=== PATIENT | male | born 1995 | race African-American/Black ===

== ENCOUNTER 2017-05-08 10:36 | Emergency (ER) | payer MEDICAID ==
[~2017-05-08] VITALS: Ht 170.2 cm; Wt 72.0 kg
[2017-05-08 10:38] VITALS: BP 127/74
== END 2017-05-08 14:27 | disposition home or self-care (01) ==
LOC: ER 10:48
DX: M23.91 Unspecified internal derangement of right knee (principal)
CPT/HCPCS: 73562; 99284

== ENCOUNTER 2019-08-07 15:27 | Emergency (ER) | payer MEDICAID ==
[~2019-08-07] VITALS: Ht 170.2 cm; Wt 71.0 kg
[2019-08-07 15:28] VITALS: BP 125/73
== END 2019-08-07 15:52 | disposition home or self-care (01) ==
LOC: ER 15:34
DX: H10.9 Unspecified conjunctivitis (principal)
CPT/HCPCS: 99283

== ENCOUNTER 2020-01-04 16:33 | Emergency (ER) | payer MEDICAID ==
[~2020-01-04] VITALS: Ht 170.2 cm; Wt 70.0 kg
[2020-01-04 16:35] VITALS: BP 111/69
[2020-01-04] MEDS ORDERED: CEFTRIAXONE SODIUM 250 MG/VIAL IM ONE (17:15)
[2020-01-04] MEDS ORDERED: LIDOCAINE HCL 1% 20ML VIAL (Pyxis) INJ INFIL ONE (17:15)
[2020-01-04] MEDS ORDERED: AZITHROMYCIN 500 MG TABLET PO ONE (17:15)
== END 2020-01-04 18:00 | disposition home or self-care (01) ==
LOC: ER 16:40
DX: Z20.2 Contact with and (suspected) exposure to infections with a predominantly sexual mode of transmission (principal)
CPT/HCPCS: 96372; 99283; J0696; J3490

== ENCOUNTER 2020-02-02 08:12 | Emergency (ER) | payer MEDICAID ==
[~2020-02-02] VITALS: Ht 175.3 cm; Wt 65.0 kg
[2020-02-02 08:44] VITALS: BP 128/68
[2020-02-02] MEDS ORDERED: IBUPROFEN 600MG TABLET PO ONE (08:45)
== END 2020-02-02 09:34 | disposition home or self-care (01) ==
LOC: ER 08:12
DX: M25.512 Pain in left shoulder (principal)
CPT/HCPCS: 73030; 99283

== ENCOUNTER 2020-08-12 08:51 | Emergency (ER) | payer MEDICAID ==
[~2020-08-12] VITALS: Ht 170.2 cm; Wt 71.0 kg
[2020-08-12] MEDS ORDERED: TRAMADOL 50MG TABLET PO ONE (09:30)
[2020-08-12 11:01] VITALS: BP 120/82
== END 2020-08-12 11:03 | disposition home or self-care (01) ==
LOC: ER 09:13
DX: S83.8X1A Sprain of other specified parts of right knee, initial encounter (principal); V00.131A Fall from skateboard, initial encounter; Y93.89 Activity, other specified; Y92.89 Other specified places as the place of occurrence of the external cause; Y99.8 Other external cause status
CPT/HCPCS: 73562; 99283; L1830

== ENCOUNTER 2022-05-06 04:54 | Emergency (ER) | payer MEDICAID, OTHER ==
[~2022-05-06] VITALS: Ht 170.2 cm; Wt 77.0 kg
[2022-05-06 05:09] VITALS: BP 112/75
[2022-05-06] MEDS ORDERED: ALBUTEROL (0.5%) 2.5MG/0.5ML NEB HHN ONE (05:30)
[2022-05-06] MEDS ORDERED: ALBU6.7H3 INH (05:56)
== END 2022-05-06 06:43 | disposition home or self-care (01) ==
LOC: ER 04:54
DX: B34.9 Viral infection, unspecified (principal); J45.901 Unspecified asthma with (acute) exacerbation; Z00.00 Encounter for general adult medical examination without abnormal findings; Z20.822 Contact with and (suspected) exposure to COVID-19
CPT/HCPCS: 87426; 94640; 99283; C9803; Z7610

== ENCOUNTER 2022-05-31 12:44 | Emergency (ER) | payer MEDICAID ==
[~2022-05-31] VITALS: Ht 167.6 cm; Wt 75.0 kg
[~2022-05-31 12:44] MED LIST: ALBU6.7H3 INH
[2022-05-31 12:50] VITALS: BP 159/86
== END 2022-05-31 18:27 | disposition left against medical advice (07) ==
LOC: ER 13:42
DX: Z53.21 Procedure and treatment not carried out due to patient leaving prior to being seen by health care provider (principal)

== ENCOUNTER 2022-06-01 11:00 | Emergency (ER) | payer MEDICAID ==
[~2022-06-01] VITALS: Ht 167.6 cm; Wt 70.0 kg
[2022-06-01 11:18] VITALS: BP 129/78
== END 2022-06-01 16:40 | disposition left against medical advice (07) ==
LOC: ER 11:00
DX: Z53.21 Procedure and treatment not carried out due to patient leaving prior to being seen by health care provider (principal)